=== PATIENT | male | born 1960 | race Caucasian/White ===

== ENCOUNTER 2019-11-05 10:56 | Day surgery (SDC) | payer BC ==
[2019-11-05] MEDS ORDERED: Midazolam 1 MG/ML 2 ML SDV IV ONE (10:57)
[2019-11-05] MEDS ORDERED: Propofol 200 MG/20 ML SDV IV ONE (10:57)
[2019-11-05] MEDS ORDERED: Sodium Chloride 0.9% 1,000 ML IV SCH (11:15)
[2019-11-05] MEDS ORDERED: Sodium Chloride 0.9% 10 ML Syringe FLUSH PRN (11:15)
[2019-11-05] MEDS ORDERED: Midazolam 1 MG/ML 2 ML SDV ONE (11:36)
[2019-11-05] MEDS ORDERED: Propofol 200 MG/20 ML SDV ONE (11:37)
--- NOTE | 2019-11-05 12:45 | PCM.PN ---
- General Info Date of Service: 11/05/19 - Review of Systems Systems Review Comment:: 59-year-old male referred for his initial screening colonoscopy. He denies any recent change in bowel pattern or blood in his stool. He does not have knowledge of his family medical history. He is medically stable to proceed today. No recent changes in his health status are noted. I have discussed the proposed colonoscopy with the patient. Risks such as but not limited to bleeding and GI injury reviewed. He agrees to proceed. - Patient Data Vitals - Most Recent: Last Vital Signs Temp 98.6 F 11/05/19 11:25 Pulse 74 11/05/19 11:25 Resp 16 11/05/19 11:25 BP 107/67 11/05/19 11:25 Pulse Ox 94 L 11/05/19 11:25 Weight - Most Recent: 122.47 kg Lab Results Last 24 Hours: Laboratory Results - last 24 hr 11/04/19 11/05/19 Range/Units 11:05 11:32 POC Glucose 81 (74-106) mg/dl SARS-CoV-2 RNA (RT-PCR) Negative (NEGATIVE) Med Orders - Current: Current Medications Sodium Chloride (Normal Saline) 1,000 mls @ 50 mls/hr IV ASDIRECTED [facility] Last Admin: 11/05/19 11:42 Dose: 50 mls/hr Sodium Chloride (Saline Flush) 10 ml FLUSH Q8HR PRN PRN Reason: keep vein open Discontinued Medications Midazolam HCl (Versed 1 Mg/Ml) Confirm Administered Dose 2 mg .ROUTE .STK-MED ONE Stop: 11/05/19 11:37 Propofol (Diprivan 20 Ml) Confirm Administered Dose 400 mg .ROUTE .STK-MED ONE Stop: 11/05/19 11:38 Sepsis Event Note - Focused Exam Vital Signs: Vital Signs Temp Pulse Resp BP Pulse Ox 11/05/19 11:25 98.6 F 74 16 107/67 94 L Date Exam was Performed: 11/05/19 Time Exam was Performed: 12:43 - Problem List Review Problem List Initiated/Reviewed/Updated: Yes - My Orders Last 24 Hours: My Active Orders 11/04/19 14:20 Resuscitation Status Routine 11/05/19 11:15 Blood Glucose Check, Bedside [RC] UPON Peripheral IV Care [RC] . DIRECTED Sodium Chloride 0.9% [Normal Saline] 1,000 ml IV ASDIRECTED Sodium Chloride 0.9% [Saline Flush] 10 ml FLUSH Q8HR PRN Peripheral IV Insertion Adult [OM.PC] Routine 11/05/19 12:00 Patient to Empty Bladder [RC] ASDIRECTED 11/05/19 12:30 Verify Patient Consent Obtain [RC] ASDIRECTED 11/05/19 Breakfast Nothing Per Oral Diet [DIET] - Assessment Assessment:: Colon cancer screening - Plan Plan:: Colonoscopy
--- NOTE | 2019-11-05 13:26 | PCM.OPNOTE ---
- General Post-Op/Procedure Note Date of Surgery/Procedure: 11/05/19 Operative Procedure(s): Colonoscopy with polypectomy Findings: Sessile Cecal polyp Moderate Sigmoid Diverticulosis Pre Op Diagnosis: Colon Cancer Screening Post-Op Diagnosis: Colon Polyp. Sigmoid Diverticulosis Anesthesia Technique: MAC Primary Surgeon: Oli Ortiz Pathology: Cecal polyp EBL in mLs: 3 Complications: None Condition: Good
--- NOTE | 2019-11-05 15:51 | OR ---
DATE OF SURGERY: 11/05/2019 SURGEON: Oli Ortiz MD PREOPERATIVE DIAGNOSIS: Colon cancer screening. POSTOPERATIVE DIAGNOSIS: Cecal polyp, sigmoid diverticulosis. OPERATION PERFORMED: Colonoscopy with polypectomy. INDICATIONS FOR SURGERY: This 59-year-old male was referred for his initial screening colonoscopy. He denies any recent change in bowel pattern or any known family history of colon cancer. FINDINGS: One polyp was noted on today's exam. This is a sessile polyp in the cecum, approximately 10 x 3 mm in size. There is also moderate degree of diverticulosis in the sigmoid region which does not appear to be acutely inflamed or otherwise complicated. The remainder of the colon appears normal. DESCRIPTION OF PROCEDURE: The patient was taken to the operating room. He was given intravenous sedation and with him in the left lateral decubitus position, digital rectal exam was performed. No rectal masses were noted. The Olympus colonoscope was inserted into the rectum. Retroflexed examination of the rectal canal is performed. The scope was then carefully advanced under direct visualization through the entire length of the colon until the cecum is reached. Cecal acquisition is confirmed by noting the normal internal cecal anatomy including the appendiceal orifice and the ileocecal valve. The light was also noted to transilluminate the abdominal wall in the right lower quadrant. In the cecum, the above-described polyp was identified. With its configuration, it was felt that a snare would create risk for perforation, so the polyp was removed by taking multiple bites of the polyp with a forceps without cautery and then cauterizing the area of the polyp. This appeared to completely remove/destroy the polyp and there was no sign of bleeding at the close of this maneuver. The scope was then slowly withdrawn sequentially re-examining the colonic segments until the entire colon and rectum had been fully examined. The scope was removed and the patient was taken from the operating room in satisfactory condition. ESTIMATED BLOOD LOSS: 3 mL. COMPLICATIONS: None. PROGNOSIS: Good. /[id number]/MODL
[2019-11-05 16:09] VITALS: BP 111/69; PULSE 65
== END 2019-11-05 14:45 | disposition home or self-care (01) ==
LOC: KA.SDS 10:56
PROVIDERS: ATTEND Surgery
DX: Z12.11 Encounter for screening for malignant neoplasm of colon (principal); D12.0 Benign neoplasm of cecum; K57.30 Diverticulosis of large intestine without perforation or abscess without bleeding; Z11.59 Encounter for screening for other viral diseases; J44.9 Chronic obstructive pulmonary disease, unspecified; E11.9 Type 2 diabetes mellitus without complications; E78.5 Hyperlipidemia, unspecified; K21.9 Gastro-esophageal reflux disease without esophagitis; E66.9 Obesity, unspecified; B35.1 Tinea unguium; I25.10 Atherosclerotic heart disease of native coronary artery without angina pectoris; Z79.82 Long term (current) use of aspirin; Z79.84 Long term (current) use of oral hypoglycemic drugs; Z79.899 Other long term (current) drug therapy; Z87.891 Personal history of nicotine dependence; Z68.41 Body mass index [BMI] 40.0-44.9, adult
CPT/HCPCS: 45380; 82962; 87635; J2250; J2704; J7030; U0002

== ENCOUNTER 2021-09-07 20:10 | Emergency (ER) | payer MEDICARE, OTHER ==
[2021-09-07] MEDS ORDERED: Acetaminophen 500 MG Tab PO ONE (20:29)
[2021-09-07] MEDS ORDERED: Acetaminophen 500 MG Tab ONE (20:29)
[2021-09-07 20:50] LABS: ANION GAP 14.8 mmol/L (5-15); CHLORIDE,CL 100 mmol/L (98-107); SODIUM,NA 133 mmol/L (136-145)
[2021-09-07] MEDS ORDERED: Enoxaparin 100 MG/1 ML Syringe SUBCUT ONE (21:32)
[2021-09-07] MEDS ORDERED: Aspirin 81 MG Tab.Chew ONE (21:33)
[2021-09-07] MEDS ORDERED: Aspirin 81 MG Tab.Chew PO ONE (21:35)
[2021-09-07 21:43] LABS: CORONAVIRUS COVID-19 NAA NEGATIVE (NEGATIVE)
[2021-09-07] MEDS ORDERED: cefTRIAXone 2 GM Vial IVPUSH ONE (21:46)
[2021-09-07] MEDS ORDERED: Sodium Chloride 0.9% 1,000 ML ONE (21:47)
[2021-09-07] MEDS ORDERED: cefTRIAXone 2 GM Vial ONE (21:47)
[2021-09-08 00:41] VITALS: BP 119/62; PULSE 108
[2021-09-08] MEDS ORDERED: Iopamidol 755 Mg/ML 100 ML Bottle IV ONE (07:38)
[2021-09-08] MEDS ORDERED: Sodium Chloride 0.9% 100 ML IV SCH (07:45)
== END 2021-09-07 22:10 ==
LOC: KA.ED 20:10
DX: I21.4 Non-ST elevation (NSTEMI) myocardial infarction (principal); R09.02 Hypoxemia; E10.65 Type 1 diabetes mellitus with hyperglycemia; R77.8 Other specified abnormalities of plasma proteins; R79.1 Abnormal coagulation profile; J18.9 Pneumonia, unspecified organism; J44.9 Chronic obstructive pulmonary disease, unspecified; I11.0 Hypertensive heart disease with heart failure; I50.9 Heart failure, unspecified; E66.9 Obesity, unspecified; Z68.41 Body mass index [BMI] 40.0-44.9, adult; Z99.81 Dependence on supplemental oxygen; Z20.822 Contact with and (suspected) exposure to COVID-19; Z79.899 Other long term (current) drug therapy
CPT/HCPCS: 0240U; 36415; 71045; 71046; 71275; 80048; 80053; 83605; 83880; 84484; 85025; 85379; 93005; 96372; 96374; 99285; 99285-25; A9270-GY; J0696; J1650; Q9967

== ENCOUNTER 2022-01-01 12:40 | Emergency (ER) | payer MEDICARE, OTHER ==
[2022-01-01 14:08] LABS: ANION GAP 11.8 mmol/L (5-15)
[2022-01-01 14:47] LABS: O2 DELIVERY DEVICE NON REBR MASK; PCO2 ARTERIAL 50 mmHG (35-45); PO2 ARTERIAL 80 mmHG (80-105)
[2022-01-01 14:48] LABS: BASE EXCESS ARTERIAL 2 mmol/L (-2-3); BICARBONATE,ARTERIAL 28.2 mmol/L (22-26); O2 SATURATION ARTERIAL 96 % (95-98)
[2022-01-01 15:45] VITALS: BP 100/56; PULSE 82
== END 2022-01-01 15:00 ==
LOC: KA.ED 12:40
DX: I50.1 Left ventricular failure, unspecified (principal); I10 Essential (primary) hypertension; J90 Pleural effusion, not elsewhere classified; E83.52 Hypercalcemia; J44.9 Chronic obstructive pulmonary disease, unspecified; C22.9 Malignant neoplasm of liver, not specified as primary or secondary; E66.9 Obesity, unspecified; Z68.37 Body mass index [BMI] 37.0-37.9, adult; Z88.0 Allergy status to penicillin; Z79.899 Other long term (current) drug therapy; Z79.82 Long term (current) use of aspirin; Z79.84 Long term (current) use of oral hypoglycemic drugs; Z79.4 Long term (current) use of insulin; Z87.891 Personal history of nicotine dependence
CPT/HCPCS: 36415; 36600; 71045; 80053; 82803; 83605; 83880; 85025; 99284; 99285

== ENCOUNTER 2022-01-06 13:36 | Inpatient (IN) | payer MEDICARE, OTHER ==
[2022-01-06] MEDS ORDERED: Acetaminophen 325 MG Tab PO PRN (16:42)
[2022-01-06] MEDS ORDERED: Albuterol 8 GM Inhaler INH PRN (16:42)
[2022-01-06] MEDS ORDERED: Ondansetron 4 MG/2 ML SDV IV PRN (17:19)
[2022-01-06] MEDS ORDERED: Saliva Substitute Oral Spray 120 ML Bottle MUCMEM PRN (17:24)
[2022-01-06] MEDS ORDERED: Morphine 2 MG/ML SYRINGE IVPUSH PRN (17:26)
[2022-01-06] MEDS: Morphine 2 MG/ML SYRINGE IVPUSH SCH ×2 (17:40→21:08)
[2022-01-07] MEDS: Melatonin 3 MG Tab PO PRN ×2 (00:51→22:10)
[2022-01-07] MEDS: Morphine 2 MG/ML SYRINGE IVPUSH SCH ×6 (00:51→21:40)
[2022-01-07] MEDS: Furosemide 40 MG/4 ML VIAL IV SCH (09:23)
[2022-01-07] MEDS: Polyethylene Glycol 3350 Powder 17 GM Packet PO SCH ×2 (09:23→09:36)
[2022-01-07] MEDS: Formoterol/Mometasone 100-5 MCG 8.8 GM Inhaler IH SCH ×2 (11:36→22:09)
[2022-01-07] MEDS: Pantoprazole 40 MG Tab.CR PO SCH (11:37)
[2022-01-07] MEDS: Levofloxacin 500 MG Tab PO SCH (11:37)
[2022-01-07] MEDS: Metoprolol Succinate 50 MG Tab.ER PO SCH (11:38)
[2022-01-07] MEDS: Tiotropium Bromide 4 GM Inhalation Spray (2.5mcg/1 dose; 10 doses) INH SCH (12:05)
[2022-01-07] MEDS: Lactulose Soln 10 GM/15 ML 30 ML UD Cup PO SCH ×2 (13:21→21:36)
[2022-01-07] MEDS: Insulin Glargine,Hum.Rec.Anlog 100 UNIT/ML 3 ML Pen SUBCUT SCH (21:37)
[2022-01-08] MEDS: Morphine 2 MG/ML SYRINGE IVPUSH SCH ×6 (01:29→21:16)
[2022-01-08] MEDS: Polyethylene Glycol 3350 Powder 17 GM Packet PO SCH (09:06)
[2022-01-08] MEDS: Lactulose Soln 10 GM/15 ML 30 ML UD Cup PO SCH ×3 (09:06→21:11)
[2022-01-08] MEDS: Furosemide 40 MG/4 ML VIAL IV SCH (09:07)
[2022-01-08] MEDS: Metoprolol Succinate 50 MG Tab.ER PO SCH (09:08)
[2022-01-08] MEDS: Levofloxacin 500 MG Tab PO SCH (09:08)
[2022-01-08 09:09] VITALS: BP 110/62; PULSE 102
[2022-01-08] MEDS: Tiotropium Bromide 4 GM Inhalation Spray (2.5mcg/1 dose; 10 doses) INH SCH (09:14)
[2022-01-08] MEDS: Pantoprazole 40 MG Tab.CR PO SCH (11:00)
[2022-01-08] MEDS: Formoterol/Mometasone 100-5 MCG 8.8 GM Inhaler IH SCH ×2 (11:00→23:05)
[2022-01-08] MEDS: Insulin Glargine,Hum.Rec.Anlog 100 UNIT/ML 3 ML Pen SUBCUT SCH (21:14)
[2022-01-09] MEDS: Melatonin 3 MG Tab PO PRN (00:16)
[2022-01-09] MEDS: Morphine 2 MG/ML SYRINGE IVPUSH SCH ×7 (01:35→23:58)
[2022-01-09] MEDS ORDERED: LORazepam 2 MG/ML SDV ONE (05:53)
[2022-01-09] MEDS: LORazepam 2 MG/ML SDV IVPUSH SCH ×5 (06:00→18:30)
[2022-01-09] MEDS: LORazepam 2 MG/ML SDV IVPUSH PRN ×3 (07:56→23:02)
[2022-01-09] MEDS ORDERED: Glycopyrrolate 0.2 MG/ML SDV IVPUSH PRN (08:11)
[2022-01-09] MEDS: Polyethylene Glycol 3350 Powder 17 GM Packet PO SCH (08:24)
[2022-01-09] MEDS: Levofloxacin 500 MG Tab PO SCH (08:24)
[2022-01-09] MEDS: Lactulose Soln 10 GM/15 ML 30 ML UD Cup PO SCH ×2 (08:24→13:35)
[2022-01-09] MEDS: Metoprolol Succinate 50 MG Tab.ER PO SCH (08:24)
[2022-01-09] MEDS: Glycopyrrolate 0.2 MG/ML SDV IVPUSH SCH ×2 (08:35→15:50)
[2022-01-09] MEDS: Furosemide 40 MG/4 ML VIAL IV SCH (08:44)
[2022-01-09] MEDS: Tiotropium Bromide 4 GM Inhalation Spray (2.5mcg/1 dose; 10 doses) INH SCH (08:47)
[2022-01-09] MEDS: Morphine 2 MG/ML SYRINGE IVPUSH PRN ×2 (09:18→23:05)
[2022-01-09] MEDS: Formoterol/Mometasone 100-5 MCG 8.8 GM Inhaler IH SCH (10:03)
[2022-01-09] MEDS: Pantoprazole 40 MG Tab.CR PO SCH (10:31)
[2022-01-09] MEDS ORDERED: Acetaminophen 650 MG Supp RECTAL PRN (18:23)
[2022-01-10] MEDS: Glycopyrrolate 0.2 MG/ML SDV IVPUSH SCH (00:05)
[2022-01-10] MEDS: LORazepam 2 MG/ML SDV IVPUSH SCH (00:08)
== END 2022-01-10 03:25 | disposition expired | DRG 951 ==
LOC: KA.MS 13:36
PROVIDERS: ADMIT Nurse Practitioner Family; ATTEND Internal Medicine
DX: Z51.5 Encounter for palliative care (principal); G93.41 Metabolic encephalopathy; J96.20 Acute and chronic respiratory failure, unspecified whether with hypoxia or hypercapnia; C34.90 Malignant neoplasm of unspecified part of unspecified bronchus or lung; C79.51 Secondary malignant neoplasm of bone; J90 Pleural effusion, not elsewhere classified; I50.32 Chronic diastolic (congestive) heart failure; N17.9 Acute kidney failure, unspecified; M79.18 Myalgia, other site; E83.52 Hypercalcemia; D69.6 Thrombocytopenia, unspecified; Z66 Do not resuscitate; N40.0 Benign prostatic hyperplasia without lower urinary tract symptoms; E66.9 Obesity, unspecified; K59.00 Constipation, unspecified; R45.1 Restlessness and agitation; J44.9 Chronic obstructive pulmonary disease, unspecified; I25.10 Atherosclerotic heart disease of native coronary artery without angina pectoris; I11.0 Hypertensive heart disease with heart failure; E78.00 Pure hypercholesterolemia, unspecified; Z68.35 Body mass index [BMI] 35.0-35.9, adult; Z98.42 Cataract extraction status, left eye; Z98.41 Cataract extraction status, right eye; Z95.1 Presence of aortocoronary bypass graft; I25.2 Old myocardial infarction; Z95.5 Presence of coronary angioplasty implant and graft; Z87.19 Personal history of other diseases of the digestive system; Z87.81 Personal history of (healed) traumatic fracture; Z85.46 Personal history of malignant neoplasm of prostate; Z90.79 Acquired absence of other genital organ(s); Z98.890 Other specified postprocedural states; Z90.89 Acquired absence of other organs; Z86.19 Personal history of other infectious and parasitic diseases; Z79.82 Long term (current) use of aspirin; Z79.4 Long term (current) use of insulin; Z79.1 Long term (current) use of non-steroidal anti-inflammatories (NSAID); Z79.2 Long term (current) use of antibiotics; Z88.1 Allergy status to other antibiotic agents; Z79.51 Long term (current) use of inhaled steroids
CPT/HCPCS: 99306; 99315; A9270-GY; J1940; J2060; J2270; J2405; J3490